=== PATIENT | male | born 1985 | race Caucasian/White ===

== ENCOUNTER → 2017-07-23 | Outpatient (CLI) | payer OTHER ==
[2017-07-23 14:43] LABS: COMPLEMENT C3 113 MG/DL (90-180); COMPLEMENT C4 27.1 MG/DL (10-40); IMMUNOGLOBULIN G 915 MG/DL (681-1648); IMMUNOGLOBULIN M 133 MG/DL (40-230)
[2017-07-23 15:43] LABS: IMMUNOGLOBULIN E 5.8 IU/ML (<100)
[2017-07-28 00:07] LABS: F004-IgE Wheat <0.10 kU/L (Class 0); F013 IgE PEANUT <0.10 kU/L (Class 0); F014 IgE SOYBEAN <0.10 kU/L (Class 0); F265 IgE LENTIL <0.10 kU/L (Class 0)
== END ==
LOC: M WUC 11:47
DX: J30.1 Allergic rhinitis due to pollen (principal); J30.81 Allergic rhinitis due to animal (cat) (dog) hair and dander; J30.89 Other allergic rhinitis; H10.45 Other chronic allergic conjunctivitis; L50.8 Other urticaria; T78.1XXA Other adverse food reactions, not elsewhere classified, initial encounter; X58.XXXA Exposure to other specified factors, initial encounter; Y92.89 Other specified places as the place of occurrence of the external cause
CPT/HCPCS: 82785

== ENCOUNTER → 2020-12-22 | Outpatient (REF) | payer OTHER ==
[2020-12-22 11:45] LABS: SEMEN APPEARANCE OPAQUE (OPAQUE); SEMEN VISCOSITY LIQUID (LIQUID); SEMEN VOLUME 1.8 ml (2.0-5.0); SEMEN pH 8.5 (7.0-8.0); WBC CONCENTRATION >1 M/ml (<=1 M/ml)
== END ==
LOC: M LAB REF 11:38
PROVIDERS: ATTEND Obstetrics & Gynecology
DX: N46.9 Male infertility, unspecified (principal); Z31.41 Encounter for fertility testing

== ENCOUNTER → 2021-11-22 | Outpatient (RCR) | payer BC, OTHER | LOC: M PT 11-01 14:04 | PROVIDERS: ATTEND Orthopaedic Surgery | DX: S83.511A Sprain of anterior cruciate ligament of right knee, initial encounter (principal) ==

== ENCOUNTER 2021-12-06 11:34 | Outpatient (RCR) | payer BC, OTHER | END 2021-12-23 | LOC: M PT 11:34 | PROVIDERS: ATTEND Orthopaedic Surgery | DX: S83.511A Sprain of anterior cruciate ligament of right knee, initial encounter (principal) ==

== ENCOUNTER 2022-01-21 13:45 | Outpatient (RCR) | payer BC, OTHER | END 2022-01-23 | LOC: M PT 13:45 | PROVIDERS: ATTEND Orthopaedic Surgery | DX: M23.611 Other spontaneous disruption of anterior cruciate ligament of right knee (principal) ==

== ENCOUNTER → 2022-02-22 | Outpatient (RCR) | payer BC, OTHER | LOC: M PT 01-24 11:22 | PROVIDERS: ATTEND Orthopaedic Surgery | DX: M23.6 Other spontaneous disruption of ligament(s) of knee (principal) ==

== ENCOUNTER → 2022-04-16 | Outpatient (CLI) | payer BC, OTHER | LOC: M PLALAB 11:10 | PROVIDERS: ATTEND Internal Medicine Hematology | DX: I82.531 Chronic embolism and thrombosis of right popliteal vein (principal) ==

== ENCOUNTER 2023-03-06 09:23 | Day surgery (SDC) | payer BC, OTHER ==
[~2023-03-06] VITALS: Ht 182.9 cm; Wt 108.0 kg
[~2023-03-06 09:23] MED LIST: NS 1,000 ML IV ONE; XARE20TA
[2023-03-06] MEDS ORDERED: LIDOCAINE 2% 100MG/5ML SDV (FOR ANES.) As Ordered ONE (11:05)
[2023-03-06] MEDS ORDERED: propofoL 500 MG/50 ML VIAL As Ordered ONE (11:05)
[2023-03-06 11:26] VITALS: TEMP 96.5
[2023-03-06 11:35] VITALS: BP 130/76; O2SAT 97
== END 2023-03-06 11:48 | disposition home or self-care (01) ==
LOC: M OPP 09:23
PROVIDERS: ATTEND Surgery
DX: D12.6 Benign neoplasm of colon, unspecified (principal); K57.30 Diverticulosis of large intestine without perforation or abscess without bleeding; K62.5 Hemorrhage of anus and rectum; G47.30 Sleep apnea, unspecified